=== PATIENT | male | born 1970 | race Caucasian/White ===

== ENCOUNTER 2018-09-13 03:27 | Emergency (ER) | payer SELFPAY ==
[2018-09-13 03:39] VITALS: BP 102/79
[2018-09-13] MEDS ORDERED: Alum Hydrox/Mag Hydrox/Simeth 30 ML, Lidocaine 2% 15 ML PO ONE ×2 (03:44)
--- NOTE | 2018-09-13 03:44 | EDM.PDOC ---
ED HPI GENERAL MEDICAL PROBLEM - General Chief Complaint: Abdominal Pain Stated Complaint: ABDOMINAL PAIN Time Seen by Provider: 09/13/18 03:39 - History of Present Illness INITIAL COMMENTS - FREE TEXT/NARRATIVE: 47-year-old male presents emergency room with epigastric pain. This awoke him from sleep approximately 2 hours before coming in he was diaphoretic with this for a short time he's had no breathing difficulties or shortness of breath. Patient is not in pain like this in the past. Patient is taken a handful of Tums with no relief. Patient has no history of heart problems no family history of heart problems he has no history of prior epigastric pain ulcer disease reflux or dyspepsia. Family history is otherwise unremarkable patient does smoke and he had several drinks this evening. Epigastric Pain Score (Numeric/FACES): 4 - Related Data Allergies Allergy/AdvReac Type Severity Reaction Status Date / Time venom-honey bee Allergy Anaphylactic Verified 09/13/18 03:39 [bee venom (honey bee)] Shock Home Meds: Home Meds EPINEPHrine [Epipen] 0.3 mg IM ONETIME 04/11/15 [History] Ondansetron [Zofran ODT] 4 mg PO Q6H PRN #12 tab.dis 09/13/18 [Rx] Past Medical History - Past Surgical History Other HEENT Surgeries/Procedures: deviated septum ED ROS GENERAL - Review of Systems Review Of Systems: See Below Constitutional: Reports: No Symptoms HEENT: Reports: No Symptoms Respiratory: Reports: No Symptoms Cardiovascular: Reports: No Symptoms Endocrine: Reports: No Symptoms GI/Abdominal: Reports: Abdominal Pain, Other (He felt that he had a lot of gas in the stomach). Denies: Constipation, Diarrhea, Nausea, Vomiting : Reports: No Symptoms Neurological: Reports: No Symptoms ED EXAM, GI/ABD - Physical Exam Exam: See Below Exam Limited By: No Limitations General Appearance: Alert, No Apparent Distress Head: Atraumatic, Normocephalic Neck: Normal Inspection, Supple, Non-Tender, Full Range of Motion Respiratory/Chest: No Respiratory Distress, Lungs Clear, Normal Breath Sounds Cardiovascular: Regular Rate, Rhythm, No Edema, No Murmur GI/Abdominal Exam: Normal Bowel Sounds, Soft, Other (He has midepigastric discomfort that mimics the pain that brought him in no significant abdominal pain noted on exam no rigidity or rebound or guarding noted) Back Exam: Normal Inspection. No: CVA Tenderness (L), CVA Tenderness (R) Neurological: Alert, Oriented, Normal Cognition EKG INTERPRETATION EKG Date: 09/13/18 Rhythm: NSR [place]: Normal P-Wave: Present QRS: Other (Low voltage in the limb leads) ST-T: Normal QT: Normal Comparison: NA - No Prior EKG Course - Vital Signs Last Recorded V/S: Last Vital Signs Temp 36.3 C 09/13/18 03:35 Pulse 76 09/13/18 03:35 Resp 18 09/13/18 03:35 BP 102/79 09/13/18 03:35 Pulse Ox 100 09/13/18 03:35 - Orders/Labs/Meds Orders: Active Orders 24 hr Category Date Time Status EKG Documentation Completion [RC] STAT Care 09/13/18 03:49 Active Chest 1V Frontal [CR] Stat Exams 09/13/18 04:02 Taken Labs: Laboratory Tests 09/13/18 09/13/18 09/13/18 Range/Units 04:20 04:20 04:20 WBC 11.30 H (4.23-9.07) K/mm3 RBC 4.59 L (4.63-6.08) M/mm3 Hgb 14.8 (13.7-17.5) gm/L Hct 41.4 (40.1-51.0) % MCV 90.2 (79.0-92.2) fl MCH 32.2 (25.7-32.2) pg MCHC 35.7 H (32.2-35.5) g/dl RDW Std Deviation 43.8 (35.1-43.9) fL Plt Count 305 (163-337) K/mm3 MPV 9.1 L (9.4-12.3) fl Neutrophils % (Manual) 64 H (40-60) % Band Neutrophils % 0 (0-10) % Lymphocytes % (Manual) 32 (20-40) % Atypical Lymphs % 0 % Monocytes % (Manual) 3 (2-10) % Eosinophils % (Manual) 0 L (0.8-7.0) % Basophils % (Manual) 1 (0.2-1.2) Platelet Estimate Adequate Plt Morphology Comment Normal RBC Morph Comment Normal PT 10.7 (9.5-12.1) SECONDS INR 0.98 APTT 25 (24-31) SECONDS Sodium 141 (136-145) mEq/L Potassium 3.3 L (3.5-5.1) mEq/L Chloride 105 (98-107) mEq/L Carbon Dioxide 24 (21-32) mEq/L Anion Gap 15.3 H (5-15) BUN 10 (7-18) mg/dL Creatinine 0.8 (0.7-1.3) mg/dL Est Cr Clr Drug Dosing 115.71 mL/min Estimated GFR (MDRD) > 60 (>60) mL/min BUN/Creatinine Ratio 12.5 L (14-18) Glucose 105 (74-106) mg/dL Calcium 8.8 (8.5-10.1) mg/dL Total Bilirubin 0.3 (0.2-1.0) mg/dL AST 15 (15-37) U/L ALT 24 (16-63) U/L Alkaline Phosphatase 58 (46-116) U/L Troponin I < 0.017 (0.00-0.056) ng/mL Total Protein 6.7 (6.4-8.2) g/dl Albumin 3.4 (3.4-5.0) g/dl Globulin 3.3 gm/dL Albumin/Globulin Ratio 1.0 (1-2) Lipase 334 (73-393) U/L Meds: Medications Discontinued Medications Generic Name Dose Route Start Last Admin Trade Name Freq PRN Reason Stop Dose Admin Al Hydroxide/Mg Hydroxide 30 0 ml 09/13/18 03:44 09/13/18 03:47 ml/ Lidocaine HCl 15 ml PO 09/13/18 03:45 45 ml ONETIME ONE Administration Ondansetron HCl 4 mg 09/13/18 05:23 09/13/18 05:28 Zofran Odt PO 09/13/18 05:24 4 mg ONETIME ONE Administration Sucralfate 1 gm 09/13/18 04:09 09/13/18 04:19 Carafate PO 09/13/18 04:10 1 gm ONETIME ONE Administration - Re-Assessments/Exams Free Text/Narrative Re-Assessment/Exam: 09/13/18 04:17 Patient was given a GI cocktail really did not offer him any benefit 09/13/18 05:40 Carafate did not help chest x-ray was unrevealing labs including troponin were negative. He felt a little nauseated Zofran took care of this. I offered and recommended repeat troponin but the patient would like to go home and get some rest we'll discharge him with a prescription for Zofran in case he needs it and it is recommended he start famotidine. Departure - Departure Time of Disposition: 05:41 Disposition: Home, Self-Care 01 Clinical Impression: Epigastric abdominal pain, Nausea - Discharge Information Prescriptions: Ondansetron [Zofran ODT] 4 mg PO Q6H PRN #12 tab.dis PRN Reason: Nausea/Vomiting Referrals: PCP,Not In Area [Primary Care Provider] - Forms: ED Department Discharge Additional Instructions: Return to the emergency room with any questions problems worsening symptoms. Follow-up in the Hospital clinic if needed. Use Zofran as needed, this is for nausea vomiting. Push clear liquids. Start famotidine, or Pepcid 20 mg twice daily. This is [id number] - My Orders Last 24 Hours: My Active Orders 09/13/18 03:49 EKG Documentation Completion [RC] STAT 09/13/18 04:02 Chest 1V Frontal [CR] Stat - Assessment/Plan Last 24 Hours: My Active Orders 09/13/18 03:49 EKG Documentation Completion [RC] STAT 09/13/18 04:02 Chest 1V Frontal [CR] Stat
[2018-09-13] MEDS ORDERED: Sucralfate Suspension 1 GM/10 ML Cup PO ONE (04:09)
[2018-09-13] MEDS ORDERED: Ondansetron 4 MG Tab.DIS PO ONE (05:23)
--- NOTE | 2018-09-13 06:22 | CR ---
Chest: Frontal view of the chest was obtained. Comparison: No prior chest x-ray. Heart size and mediastinum are normal. Lungs are clear. Bony structures are unremarkable. Impression: 1. Nothing acute is seen on frontal chest x-ray. Diagnostic code #1
== END 2018-09-13 05:48 | disposition home or self-care (01) ==
LOC: JD.ED 03:27
DX: R10.13 Epigastric pain (principal); R11.0 Nausea; Z91.030 Bee allergy status
CPT/HCPCS: 36415; 71045; 80053; 83690; 84484; 85007; 85027; 85610; 85730; 93005; 99284; A9270; 93010; 99283